=== PATIENT | female | born 1935 | race Caucasian/White ===

== ENCOUNTER → 2017-08-04 | Day surgery (SDC) | payer MEDICARE ==
[~2017-08-04] MED LIST: ASPI81 PO; COZA100T PO; CYCL-36 PO; CYMB30CA PO; FURO80TA3 PO; GLIM4 PO; GLUCTAB PO; ISOS30TA3 PO; LACTATED RINGER'S 1000 ML INJ 1,000 ML ONE; LORTA5; METO25 PO; NITR0.4S SL; PIOG15 PO; PROPOFOL 500 MG/50 ML BTL IV ONE; SITA100 PO; TRAM50TA PO
--- NOTE | 2017-08-04 10:53 | GIPROC ---
[facility] [address], [address] COLONOSCOPY PROCEDURE REPORT EXAM DATE: 08/04/2017 PATIENT NAME: Shana Steve MR #: [id number] BIRTHDATE: 1935 ENDOSCOPIST: Aggie Sherman MD ORDER #: [id number] BANK GUARD: Dasha Cha RN and Evelyn Moctezuma RN STATUS: outpatient INDICATIONS: The patient is a 82 yr old female here for a colonoscopy due to average risk patient for colon cancer PROCEDURE PERFORMED: Colonoscopy, screening MEDICATIONS: None and Per Anesthesia. PREP QUALITY: fair PREP TYPE:Other: ESTIMATED BLOOD LOSS: None CONSENT: The patient understands the risks and benefits of the procedure and understands that these risks include, but are not limited to: sedation, allergic reaction, infection, perforation and/or bleeding. Alternative means of evaluation and treatment include, among others: physical exam, x-rays, and/or surgical intervention. The patient elects to proceed with this endoscopic procedure. medical equipment was checked for proper function. Hand hygiene and appropriate measures for infection prevention was taken. After the risks, benefits and alternatives of the procedure were thoroughly explained, Informed consent was verified, confirmed and timeout was successfully executed by the treatment team. A digital exam was performed, revealed internal hemorrhoids, and revealed external hemorrhoids The EC-[id number] ([id number]) endoscope was introduced through the anus and advanced to the cecum, which was identified by both the appendix and ileocecal valve. The instrument was then slowly withdrawn as the colon was fully examined. COLON FINDINGS: Severe diverticulosis sigmoid,descending colon cecum , visulaized IC valve, appendiculr oriffice , could not go into the cap due to looping, did not visualize well, area under IC valve. A biopsy foeceps was used to pull up IC valve and look under it very tortous sigmoid colon. Retroflexed views revealed internal hemorrhoids and Retroflexed views revealed medium internal hemorrhoids The scope was then completely withdrawn from the patient and the procedure terminated. PROCEDURE WITHDRAWAL TIME:6minutes ADVERSE EVENTS: There were no complications. IMPRESSIONS: 1. Severe diverticulosis sigmoid,descending colon cecum , visulaized IC valve, appendiculr oriffice , could not go into the cap due to looping, did not visualize well, area under IC valve 2. Retroflexed views revealed internal hemorrhoids 3. Retroflexed views revealed medium internal hemorrhoids 4. Was performed 5. Revealed internal hemorrhoids 6. Revealed external hemorrhoids RECOMMENDATIONS: 1. Benefiber 2 tsp daily 2. Yearly rectal exams 3. Probiotics from any [facility] or health food store 4. Ct abdomen/pelvis RECALL: Return 5 years Colonoscopy Aggie Sherman MD eSigned: Aggie Sherman MD 08/04/2017 10:52 AM cc: Bindu Main M.D. PATIENT NAME: Shana Steve MR#: [id number]
--- NOTE | 2017-08-04 10:55 | GIPROC ---
[facility] [address], [address] EGD PROCEDURE REPORT EXAM DATE: 08/04/2017 PATIENT NAME: Shana Steve MR #: [id number] BIRTHDATE: 1935 ATTENDING: Aggie Sherman MD ORDER #: [id number] PRODUCTION GRIP: Dasha Cha RN STATUS: outpatient INDICATIONS: The patient is a 82 yr old female here for an EGD due to anemia , reflux PROCEDURE PERFORMED: EGD w/ biopsy MEDICATIONS: None and Per Anesthesia. TOPICAL ANESTHETIC: none CONSENT: The patient understands the risks and benefits of the procedure and understands that these risks include, but are not limited to: sedation, allergic reaction, infection, perforation and/or bleeding. Alternative means of evaluation and treatment include, among others: physical exam, x-rays, and/or surgical intervention. The patient elects to proceed with this endoscopic procedure. medical equipment was checked for proper function. Hand hygiene and appropriate measures for infection prevention was taken. After the risks, benefits and alternatives of the procedure were thoroughly explained, Informed consent was verified, confirmed and timeout was successfully executed by the treatment team. The patient was anesthetized with topical anesthesia and the EC-2990Li ([id number]) endoscope was introduced through the mouth and advanced to the second portion of the duodenum. Retroflexed views revealed a hiatal hernia The gastroscope was then slowly withdrawn and removed. Duodenum normal-biopsy gastritis antrum-biopsy esophagitis distal esophagus-biopsy. ADVERSE EVENTS: There were no complications. IMPRESSIONS: 1. Duodenum normal-biopsy gastritis antrum-biopsy esophagitis distal esophagus-biopsy 2. Retroflexed views revealed a hiatal hernia RECOMMENDATIONS: 1. Await biopsy results. Biopsy results will not be ready for 7-10 days. If you don't hear from us in two weeks, call our office for biopsy results. 2. Anti-reflux regimen 3. Continue PPI 4. Avoid NSAIDS PATIENT CONDITION: stable DISPOSITION: Home REPEAT EXAM: Return 1 year EGD Aggie Sherman MD eSigned: Aggie Sherman MD 08/04/2017 10:55 AM cc: Deven Shaikhvivian Main M.D. PATIENT NAME: Shana Steve MR#: [id number]
== END | disposition home or self-care (01) ==
LOC: ESDC 08:31
PROVIDERS: ATTEND Internal Medicine Gastroenterology
DX: Z12.11 Encounter for screening for malignant neoplasm of colon (principal); K64.4 Residual hemorrhoidal skin tags; K64.8 Other hemorrhoids; K57.90 Diverticulosis of intestine, part unspecified, without perforation or abscess without bleeding; D64.9 Anemia, unspecified; K21.9 Gastro-esophageal reflux disease without esophagitis; K44.9 Diaphragmatic hernia without obstruction or gangrene; K29.70 Gastritis, unspecified, without bleeding; K20.9 Esophagitis, unspecified
CPT/HCPCS: 00740; 00810; 43239; 45378; 88305; 88312; J7120